=== PATIENT | female | born 1960 | race Caucasian/White ===

== ENCOUNTER → 2017-03-24 | Outpatient (CLI) | payer OTHER | END | disposition home or self-care (01) | LOC: HKI 11:02 | PROVIDERS: ATTEND Orthopaedic Surgery | DX: S83.232A Complex tear of medial meniscus, current injury, left knee, initial encounter (principal); S83.262A Peripheral tear of lateral meniscus, current injury, left knee, initial encounter; X58.XXXA Exposure to other specified factors, initial encounter; M17.12 Unilateral primary osteoarthritis, left knee; M25.562 Pain in left knee | CPT/HCPCS: G0463 ==

== ENCOUNTER → 2017-05-03 | Outpatient (CLI) | payer OTHER | END | disposition home or self-care (01) | LOC: HKI 09:51 | PROVIDERS: ATTEND Orthopaedic Surgery | DX: M25.562 Pain in left knee (principal); M17.12 Unilateral primary osteoarthritis, left knee; S83.262A Peripheral tear of lateral meniscus, current injury, left knee, initial encounter; S83.232A Complex tear of medial meniscus, current injury, left knee, initial encounter | CPT/HCPCS: G0463 ==

== ENCOUNTER 2017-05-06 14:20 | Day surgery (SDC) | payer OTHER ==
[2017-05-06] VITALS (21 sets, daily range): BP systolic 127–165; BP diastolic 73–97; PULSE 58–105; RESP 10–24; Ht 170.2 cm; Wt 100.2 kg
[~2017-05-06] VITALS: Ht 170.2 cm; Wt 100.2 kg
[~2017-05-06 14:20] MED LIST: CEFAZOLIN 2GM/50 ML (PMX) 50 ML X1 BEFORE INCISION IVPB ONE
[2017-05-06] MEDS ORDERED: CELECOXIB 400 MG PO X1 DOSE PO SCH (15:00)
[2017-05-06] MEDS ORDERED: traMADOL 50 MG TAB X 1 DOSE PO SCH (15:00)
[2017-05-06] MEDS ORDERED: PREGABALIN 300 MG PO X1 PO SCH (15:00)
[2017-05-06] MEDS ORDERED: CEFAZOLIN 2GM/50 ML (PMX) 50 ML X1 BEFORE INCISION IVPB SCH (15:00)
[2017-05-06] MEDS ORDERED: LACTATED RINGER'S 1,000 ML IV SCH (15:00)
[2017-05-06] MEDS ORDERED: oxyCODONE (CR) 10 MG TAB [oxyCONTIN] X1 DOSE PO SCH (15:00)
[2017-05-06] MEDS ORDERED: ONDANSETRON 4 MG IV X 1 DOSE IV SCH (15:00)
[2017-05-06] MEDS ORDERED: LOSA25TA5 PO (16:20)
[2017-05-06] MEDS ORDERED: ALBU2.5V3 NEB (16:20)
[2017-05-06] MEDS ORDERED: ADV25050 INHALATION (16:20)
[2017-05-06] MEDS ORDERED: ASPI81TA3 PO (16:20)
[2017-05-06] MEDS ORDERED: ESOM20CA PO (16:20)
[2017-05-06] MEDS ORDERED: EXEM25TA PO (16:20)
[2017-05-06] MEDS ORDERED: TRAZ50TA18 PO (16:20)
[2017-05-06] MEDS ORDERED: DEXAMETHASONE 4 MG/ML 1 ML INJ ONE (16:58)
[2017-05-06] MEDS ORDERED: MIDAZOLAM 1 MG/ML 2 ML INJ ONE (16:58)
[2017-05-06] MEDS ORDERED: ROCURONIUM 50 MG INJ ONE (16:58)
[2017-05-06] MEDS ORDERED: GLYCOPYRROLATE 0.4 MG INJ ONE (16:58)
[2017-05-06] MEDS ORDERED: FENTAnyl 50 MCG/ML VIAL ONE (16:58)
[2017-05-06] MEDS ORDERED: CEFAZOLIN 1 GM INJ ONE (16:58)
[2017-05-06] MEDS ORDERED: ONDANSETRON 4 MG INJ ONE (16:58)
[2017-05-06] MEDS ORDERED: PROPOFOL 20 ML ONE (16:58)
[2017-05-06] MEDS ORDERED: NEOSTIGMINE 3 MG/3 ML SYRINGE ONE (16:58)
--- NOTE | 2017-05-06 17:40 | HPN ---
Date/Time of Note Date/Time of Note DATE: 05/06/17 TIME: 17:39 Interval H&P Admission Note Pt. seen H&P reviewed: No system changes No changes from H&P on 04/26/17 by DARREN Campa MD May 06, 2017 17:39
[2017-05-06] MEDS ORDERED: KETOROLAC 30 MG INJ ONE ×2 (17:59→18:25)
[2017-05-06] MEDS ORDERED: LIDOCAINE 2%/EPI 30 ML INJ ONE (17:59)
[2017-05-06] MEDS ORDERED: morphine SULFATE/PF (10 MG/10 ML) INJ ONE (17:59)
[2017-05-06] MEDS ORDERED: ROPIVACAINE 0.5 % 30 ML VIAL ONE (17:59)
[2017-05-06] MEDS ORDERED: PROPOFOL 100 ML ONE (18:13)
[2017-05-06] MEDS ORDERED: SUGAMMADEX SODIUM 200 MG/2 ML VIAL IV ONE (18:51)
[2017-05-06] MEDS ORDERED: morphine SULFATE/PF (10 MG/10 ML) INJ INJ ONE (18:57)
[2017-05-06] MEDS ORDERED: hydrALAzine 20 MG INJ IV PRN (19:00)
[2017-05-06] MEDS ORDERED: DIPHENHYDRAMINE 50 MG INJ IV PRN (19:00)
[2017-05-06] MEDS ORDERED: LABETALOL HCL 20MG INJ IV PRN (19:00)
[2017-05-06] MEDS ORDERED: MEPERIDINE 25 MG INJ IV PRN (19:00)
[2017-05-06] MEDS ORDERED: MIDAZOLAM 1 MG/ML 2 ML INJ IV PRN (19:00)
[2017-05-06] MEDS ORDERED: EPHEDrine SULFATE 50 MG/5 ML SYG IV PRN (19:00)
[2017-05-06] MEDS ORDERED: ONDANSETRON 4 MG INJ IV PRN (19:00)
[2017-05-06] MEDS ORDERED: TRIMETHOBENZAMIDE 100 MG/ML VIAL IM PRN (19:00)
[2017-05-06] MEDS ORDERED: OXYCODONE/ACETAMINOPHEN (5/325) TAB PO PRN ×2 (19:00)
[2017-05-06] MEDS ORDERED: FENTAnyl 50 MCG/ML VIAL IV PRN ×3 (19:00)
[2017-05-06] MEDS ORDERED: HYDROmorphONE (0.2 MG/ML) 10ML SYG IV PRN ×3 (19:00)
[2017-05-06] MEDS ORDERED: METOCLOPRAMIDE 10 MG INJ ONE (19:05)
--- NOTE | 2017-05-06 19:21 | OPR ---
Date/Time of Note Date/Time of Note DATE: 05/06/17 TIME: 19:15 Operative Report Procedure Date: May 06, 2017 Preoperative Diagnosis Left knee medial and lateral meniscal tear Postoperative Diagnosis Same Operation Performed Left knee arthroscopy with partial medial and lateral meniscectomy Surgeon: DARREN CROWLEY MD Anesthesia: general Anesthesiologist: Sukhjinder Liz M.D. Tourniquet Time: Zero minutes Estimated Blood Loss: minimal Specimens None Complications: None Pt Condition Post Procedure: stable Disposition: PACU Indications The patient is a 57-year-old woman who has had worsening pain in the medial and lateral aspects of the left knee. An MRI has shown medial and lateral meniscal tears. I feel she would benefit from a knee arthroscopy with partial medial lateral meniscectomies. The risks benefits alternatives of the procedure were explained detail to the patient. I explained the risks to include but not be limited to bleeding, infection, pain, stiffness, neurovascular injury with possible numbness, weakness, and/or paralysis anywhere from the knee down to the toes, fracture, ligamentous injury, need for additional future surgery including possible conversion to a total knee arthroplasty, wound healing problems, blood clots, pulmonary embolism, and anesthetic complications such as heart attack, stroke, GI bleed, pneumonia, and/or . Ample time was left for the patient to ask questions all which were addressed and answered. She understood the risks involved and wished to proceed. Informed consent was signed prior to the procedure. Procedure Description The left knee was initialed with a marking pen in the preoperative hold area to identify the correct operative site. The patient was then brought to the operating room and transferred from the [facility] to the operating room table where she was anesthetized and intubated. A timeout was performed from the left side as correct operative site. A tourniquet was placed in the left proximal thigh. She was given 2 g of intravenous Ancef within 1 hour prior to the incisions. The superolateral aspect the left knee was prepped with Betadine and I injected 30 cc of half percent ropivacaine into the knee joint. The entire left knee and lower extremity were prepped and draped in usual sterile fashion. Standard arthroscopic portal incisions were made inferolaterally and inferomedially. The arthroscope was introduced into the inferolateral portal on the arthroscopy initiated. The suprapatellar pouch was free of loose bodies and synovitis. The undersurface of the patella looked healthy with no significant degenerative changes. 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 The medial lateral gutters were inspected and free of loose bodies and synovitis. The medial compartment was inspected and there was diffuse grade 3 and grade IV chondromalacia along the medial femoral condyle. There is diffuse grade II and III chondromalacia along the medial tibial plateau. The medial meniscus was probed and there was an undersurface tear of the posterior horn of the medial meniscus. This was debrided back to a stable edge with a combination of the biters, jamil, and ArthroCare wand. It was probed and stable. Intertrochlear notch was inspected and the ACL and PCL were in normal position with no evidence of tearing. The lateral compartment was inspected. There was a diffuse horizontal cleavage tear of the lateral meniscus extending from the body to the posterior horn. This was debrided back to a stable edge of a combination of the shaver and ArthroCare wand. It was probed and stable. The lateral femoral condyle had some diffuse grade II and III chondromalacia. The lateral tibial plateau had some mild grade II chondromalacia as well. At this point the arthroscopy was completed. The knee was irrigated through the arthroscope until the egressive fluid is free of meniscal fragments and blood. The instruments were removed. The knee was infiltrated a mixture half percent ropivacaine, 4 mg of Duramorph, and 30 mg of Toradol. The portal incisions were then closed with interrupted 3- 0 Monocryl and 3-0 Prolene in a vertical mattress fashion. The skin edges were sealed with Dermabond and the incisions covered with Adaptic 4 x 4's and wrapped with sterile cast padding and an Michael bandage. The patient was then awakened and extubated and taken to the recovery room in stable condition. DARREN CROWLEY MD May 06, 2017 19:21
[2017-05-06] MEDS ORDERED: traZODone 50 MG TAB PO SCH (21:00)
[2017-05-06] MEDS ORDERED: ALBUTEROL 0.083% (NEB) 2.5 MG/3 ML AMP NEB SCH (21:00)
[2017-05-07] MEDS ORDERED: LOSARTAN 25 MG TAB PO SCH (09:00)
== END 2017-05-06 21:03 | disposition home or self-care (01) ==
LOC: SDS 14:20
PROVIDERS: ATTEND Orthopaedic Surgery
DX: M23.222 Derangement of posterior horn of medial meniscus due to old tear or injury, left knee (principal); M23.252 Derangement of posterior horn of lateral meniscus due to old tear or injury, left knee; J45.909 Unspecified asthma, uncomplicated; Z85.3 Personal history of malignant neoplasm of breast; I10 Essential (primary) hypertension; E66.9 Obesity, unspecified; Z68.34 Body mass index [BMI] 34.0-34.9, adult
CPT/HCPCS: 29880; J0690; J1100; J1885; J2175; J2250; J2274; J2405; J2765; J2795; J3010; J7120; J2710

== ENCOUNTER → 2017-05-14 | Outpatient (CLI) | payer OTHER ==
[~2017-05-14] MED LIST changes: +ADV25050 INHALATION; +ALBU2.5V3 NEB; +ASPI81TA3 PO; -CEFAZOLIN 2GM/50 ML (PMX) 50 ML X1 BEFORE INCISION IVPB ONE; +ESOM20CA PO; +EXEM25TA PO; +LOSA25TA5 PO; +TRAZ50TA18 PO
--- NOTE | 2017-05-14 11:25 | PN ---
Date/Time of Note Date/Time of Note DATE: 05/14/17 TIME: 11:22 Assessment/Plan VTE Prophylaxis VTE Prophylaxis Intervention: ambulation Assessment/Plan Chief Complaint/Hosp Course 8 days status post left knee arthroscopy and partial medial and lateral meniscectomy, doing well Problems: Assessment/Plan The sutures were removed today, and Steri-Strips were applied. She will begin outpatient physical therapy program 2-3 times per week focusing on strength and range of motion. She is to take the pain medicine as needed. She is to continue with the Mobic and finish the prescription as prescribed. We will see her back in 4 weeks for repeat evaluation. The patient is to call the office in the meantime if she has any concerns. Subjective 24 Hr Interval Summary Free Text/Dictation The patient presents today for her first postoperative evaluation. She is 8 days status post left knee arthroscopy and partial medial and lateral meniscectomy. She is doing well overall. She is having some mild discomfort in her left knee but is overall doing well. She denies any fevers, chills, erythema, or warmth. She has not begun physical therapy yet. She presents today for her first postop evaluation. Exam/Review of Systems Exam On exam today, she is alert and oriented 4, in no acute distress. She is ambulatory using a cane as an assistive device. Exam of the left knee demonstrates it to be clean dry and intact. The portal incisions are well healing. Sutures are placed. There is no erythema or warmth noted. Range of motion is 0-120. Compartments are soft. Homans sign is negative. She is neurovascularly intact distally. MADDIE PHILIPPE PA-C May 14, 2017 11:25
== END | disposition home or self-care (01) ==
LOC: HKI 09:44
PROVIDERS: ATTEND Orthopaedic Surgery
DX: Z47.1 Aftercare following joint replacement surgery (principal); Z96.652 Presence of left artificial knee joint; M25.562 Pain in left knee

== ENCOUNTER → 2017-06-11 | Outpatient (CLI) | payer OTHER | END | disposition home or self-care (01) | LOC: HKI 08:56 | PROVIDERS: ATTEND Orthopaedic Surgery | DX: M25.552 Pain in left hip (principal); S83.262D Peripheral tear of lateral meniscus, current injury, left knee, subsequent encounter; S83.232D Complex tear of medial meniscus, current injury, left knee, subsequent encounter ==